=== PATIENT | male | born 1990 | race Caucasian/White ===

== ENCOUNTER 2017-04-03 18:59 | Emergency (ER) | payer BC ==
[~2017-04-03] VITALS: Ht 177.8 cm; Wt 79.6 kg
[2017-04-03 19:02] VITALS: BP 121/82
[2017-04-03] MEDS ORDERED: DIPH,PERTUSS(ACELL),TET VAC/PF 0.5 ML IM-VACC ONE ×2 (19:54→20:00)
[2017-04-03] MEDS ORDERED: LIDOCAINE 1%, 20ML SQ ONE (20:00)
== END 2017-04-03 20:20 | disposition home or self-care (01) ==
LOC: ED 20:00
DX: S61.412A Laceration without foreign body of left hand, initial encounter (principal); Z23 Encounter for immunization; W45.8XXA Other foreign body or object entering through skin, initial encounter; Y93.E9 Activity, other interior property and clothing maintenance; Y99.8 Other external cause status; Y92.009 Unspecified place in unspecified non-institutional (private) residence as the place of occurrence of the external cause
CPT/HCPCS: 12001; 90471; 90715

== ENCOUNTER 2017-06-27 18:48 | Emergency (ER) | payer BC ==
[~2017-06-27] VITALS: Ht 177.8 cm; Wt 81.4 kg
[2017-06-27 19:01] VITALS: BP 118/65
[2017-06-27] MEDS ORDERED: LIDOCAINE 1%, 20ML SQ ONE (19:30)
[2017-06-27] MEDS ORDERED: LIDOCAINE 1%, 20ML ONE (19:42)
[2017-06-27] MEDS ORDERED: BACITRACIN ZINC OINT 500U/GM, 0.9 GM ONE (20:47)
== END 2017-06-27 20:57 | disposition home or self-care (01) ==
LOC: ED 20:45
DX: S61.217A Laceration without foreign body of left little finger without damage to nail, initial encounter (principal); W27.8XXA Contact with other nonpowered hand tool, initial encounter; Y93.89 Activity, other specified; Y92.009 Unspecified place in unspecified non-institutional (private) residence as the place of occurrence of the external cause; Y99.8 Other external cause status
CPT/HCPCS: 12001; 99283

== ENCOUNTER 2019-04-29 18:18 | Emergency (ER) | payer BC ==
[~2019-04-29] VITALS: Ht 180.3 cm; Wt 82.0 kg
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
--- NOTE | 2019-04-29 18:56 | NUR ---
REPORT OF PT FROM MATTIE HAAS AND ASSUMING CARE OF PT AT THIS TIME.
[2019-04-29] MEDS ORDERED: methylPREDNISolone SOD SUCC 125 MG/2 ML ONE (18:58)
[2019-04-29] MEDS ORDERED: FAMOTIDINE 20 MG/2 ML ONE (18:59)
[2019-04-29] MEDS ORDERED: FAMOTIDINE 20 MG/2 ML IVPush ONE (19:00)
[2019-04-29] MEDS ORDERED: methylPREDNISolone SOD SUCC 125 MG/2 ML IVPush ONE (19:00)
[2019-04-29 19:01] LABS: BASOPHILS # (AUTO) 0.02 x10^3/uL (0-0.1); BASOPHILS % (AUTO) 0 % (0-1); EOSINOPHILS # (AUTO) 0.02 x10^3/uL (0-0.4); EOSINOPHILS % (AUTO) 0 % (1-7); LYMPHOCYTES # (AUTO) 0.98 x10^3/uL (1-3.4); LYMPHOCYTES % (AUTO) 8 % (22-44); MD NO; MEAN CORPUSCULAR HEMOGLOBIN 27.9 pg (27.5-34.5); MEAN CORPUSCULAR HGB CONC 32.3 g/dL (33.2-36.2); MEAN CORPUSCULAR VOLUME 86.2 fL (81-97); MEAN PLATELET VOLUME 8.9 fL (7.4-10.4); MONOCYTES # (AUTO) 0.18 x10^3/uL (0.2-0.8); MONOCYTES % (AUTO) 2 % (2-9); NEUTROPHILS # (AUTO) 10.41 x10^3/uL (1.8-6.8); NEUTROPHILS % (AUTO) 90 % (42-75); PLATELET COUNT 281 x10^3/uL (130-400); RED BLOOD COUNT 5.59 x10^6/uL (4.38-5.82); RED CELL DISTRIBUTION WIDTH 13.4 % (9.4-14.8)
[2019-04-29 19:10] LABS: ALBUMIN 4.1 g/dL (3.4-5.0); ANION GAP 11 mmol/L (5-15); CALCIUM 8.8 mg/dL (8.5-10.1); CHLORIDE 109 mmol/L (98-107); CREATININE 1.33 mg/dL (0.7-1.3)
--- NOTE | 2019-04-29 20:47 | NUR ---
PT TO US VIA [facility] AT THIS TIME.
[2019-04-29] MEDS ORDERED: IBUPROFEN 600 MG TABLET ONE (21:29)
[2019-04-29] MEDS ORDERED: IBUPROFEN 200 MG TABLET PO ONE (21:30)
--- NOTE | 2019-04-29 21:38 | NUR ---
PT D/C WITH D/C SUMMARY AND SCRIPTS. ALL QUESTIONS ANSWERED. PT AMBULATES TO REGISTRATION DESK WITH STEADY GAIT FOR D/C HOME WITH FAMILY. PT DENIES ANY OTHER NEEDS PERTAINING TO THIS VISIT. IV D/C WITH TIP INTACT.
[2019-04-29 21:39] VITALS: BP 109/57
== END 2019-04-29 21:41 | disposition home or self-care (01) ==
LOC: ED 18:55
DX: T78.2XXA Anaphylactic shock, unspecified, initial encounter (principal); T63.441A Toxic effect of venom of bees, accidental (unintentional), initial encounter; R06.00 Dyspnea, unspecified
CPT/HCPCS: 36415; 80048; 82040; 85025; 93005; 96374; 96375; 99284; J2930; J3490

== ENCOUNTER 2021-02-25 13:51 | Emergency (ER) | payer BC ==
[~2021-02-25] VITALS: Ht 177.8 cm; Wt 85.9 kg
[2021-02-25 14:04] VITALS: BP 125/81
[2021-02-25] MEDS ORDERED: PROPARACAINE OPHTH 0.5%, 15ML ONE (14:37)
[2021-02-25] MEDS ORDERED: FLUORESCEIN OPHTHALMIC 1 MG STRIP ONE (14:37)
== END 2021-02-25 15:22 | disposition home or self-care (01) ==
LOC: ED 14:50
DX: T15.01XA Foreign body in cornea, right eye, initial encounter (principal); X58.XXXA Exposure to other specified factors, initial encounter; Y93.89 Activity, other specified; Y92.410 Unspecified street and highway as the place of occurrence of the external cause; Y99.0 Civilian activity done for income or pay
CPT/HCPCS: 65222; 99284